=== PATIENT | male | born 1930 | race Caucasian/White ===

== ENCOUNTER 2016-06-26 07:28 | Day surgery (SDC) | payer MEDICARE, OTHER ==
--- NOTE | ~2016-06-26 | EGD ---
EGD REPORT [facility] [address] [place]. [address] NAME: COOPER HUBBARD : [birth year] [place] [facility] [place] [id number] AGE: 86 ADM/REG DATE : 06/26/16 MR#: [id number] REPORT SERV DATE: 06/26/16 DICTATED BY: CALI MARTINEZ DATE: 06/26/16 REPORT STATUS : Draft TRANSCRIBED BY: [facility] DATE: 06/26/16 Endoscopy Center Patient Name: Cooper Hubbard Date of : 1930 Attending MD: CALI MARTINEZ MD Procedure Date No Time: 06/26/2016 Procedure: Colonoscopy Indications: High risk colon cancer surveillance: Personal history of non-advanced adenoma, High risk colon cancer surveillance: Inflammatory bowel disease Referring MD: AMOR BURRELL Medicines: Propofol per Anesthesia Complications: No immediate complications. Procedure: Pre-Anesthesia Assessment: - ASA Grade Assessment: III - A patient with severe systemic disease. After I obtained informed consent, the scope was passed under direct vision. Throughout the procedure, the patient's blood pressure, pulse, and oxygen saturations were monitored continuously. The [id number] was introduced through the anus and advanced to the terminal ileum. The colonoscopy was performed without difficulty. The patient tolerated the procedure well. The quality of the bowel preparation was good. Findings: The perianal and digital rectal examinations were normal. The terminal ileum appeared normal. Biopsies were taken with a cold forceps for histology. to r/o microscopic ileitis The colon (entire examined portion) appeared normal. Biopsies were taken with a cold forceps from the right colon for evaluation of microscopic colitis. Biopsies were taken with a cold forceps from the left colon for evaluation of microscopic colitis. A benign-appearing, intrinsic moderate stenosis was found in the recto-sigmoid colon and was traversed after dilation. A TTS dilator was passed through the scope. Dilation with a 12-13.5-15 mm colonic balloon dilator was performed. A TTS dilator was passed through the scope. Dilation with a 15-16.5-18 mm colonic balloon dilator was performed. Biopsies were taken with a cold forceps for histology. Non-bleeding internal hemorrhoids were found during retroflexion and were mild, small and Grade I (internal hemorrhoids that do not prolapse). Impression: - The examined portion of the ileum was normal. Biopsied. - The entire examined colon is normal. Biopsied. 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 Dilated. EGD REPORT [address] [address] NAME: COOPER HUBBARD RIDGE : [birth year] [place]US : [place] [facility] [place] [id number] AGE: 86 ADM/REG DATE : 06/26/16 MR#: [id number] REPORT SERV DATE: 06/26/16 DICTATED BY: CALI MARTINEZ DATE: 06/26/16 REPORT STATUS : Draft TRANSCRIBED BY: [employer] DATE: 06/26/16 Biopsied. - Non-bleeding internal hemorrhoids. Recommendation: - Patient has a contact number available for emergencies. The signs and symptoms of potential delayed complications were discussed with the patient. Return to normal activities tomorrow. Written discharge instructions were provided to the patient. - Return to previous diet. - Continue present medications. - Await pathology results. - Repeat colonoscopy in 3 years for surveillance. - Return to my office as previously scheduled. - Discharge patient to home. Procedure Code(s): --- Professional --- 01058, Colonoscopy, flexible, proximal to splenic flexure; with dilation by balloon, 1 or more strictures 32254, Colonoscopy, flexible, proximal to splenic flexure; with biopsy, single or multiple Diagnosis Code(s): --- Professional --- K64.0, First degree hemorrhoids K56.69, Other intestinal obstruction Z86.010, Personal history of colonic polyps K52.9, Noninfective gastroenteritis and colitis, unspecified CPT copyright 2013 [employer]. All rights reserved. The codes documented in this report are preliminary and upon schedule maker review may be revised to meet current compliance requirements. Cali Martinez MD CALI MARTINEZ MD 06/26/2016 10:15 AM This report has been signed electronically. Number of Addenda: 0 Note Initiated On: 06/26/2016 9:06 AM Scope Withdrawal Time 0 hours 24 minutes 18 seconds [address] [place] [id number]
[~2016-06-26 07:28] MED LIST: AMARYL1 MG PO; AMLODIPINE; ASAB PO; ASACOL PO; COLCRYS0.6 MG PO; COR20 PO; COR40 PO; FISH-EPA1000 MG PO; GLUCOPHAGE1000 MG PO; GLUCOV5 PO; GLUCPH PO; HYTRIN10 MG PO; JANTOVEN1 MG PO; JANTOVEN4 MG PO; JANTOVEN5 MG PO; JANTOVEN6 MG PO; LOTREL1 CA1 PO; MICARDIS H80 MG/25 M PO; MICARDIS HCT PO; NEUR300 PO; NEUR600 PO; NIASPAN750 PO; NIFEDICAL XL60 MG PO; PRILO PO; SUPER B-C PO; VITAMIN B PO; Z300 PO; ZOCOR40 PO
[2016-06-26 07:52] LABS: INTERNATIONAL NORMAL RATI 1.3 UNITS (-); PROTIME (NOT ORD) 15.6 SEC (12.0-14.5)
[2016-09-07] MEDS ORDERED: GLUCPH PO (15:20)
[2016-09-07] MEDS ORDERED: GLUCOPHAGE1000 MG PO (15:21)
[2016-09-07] MEDS ORDERED: AMARYL1 MG PO (15:23)
[2016-09-07] MEDS ORDERED: AMARYL2 PO (15:23)
[2016-09-07] MEDS ORDERED: MICARDIS H80 MG/25 M PO (15:23)
[2016-09-07] MEDS ORDERED: JANTOVEN1 MG PO (15:24)
[2016-09-07] MEDS ORDERED: COR20 PO (15:24)
[2016-09-07] MEDS ORDERED: LOTREL1 CA2 PO (15:24)
[2016-09-07] MEDS ORDERED: Z300 PO (15:25)
[2016-09-07] MEDS ORDERED: NEUR600 PO (15:26)
[2016-09-07] MEDS ORDERED: FISH OIL300 MG PO (15:27)
[2016-09-07] MEDS ORDERED: HYTRIN10 MG PO (15:27)
[2016-09-07] MEDS ORDERED: NIACIN750 MG PO (15:27)
[2016-09-07] MEDS ORDERED: ZOCOR40 PO (15:27)
[2016-09-07] MEDS ORDERED: PRILOSEC OTC20 MG PO (15:28)
[2016-09-07] MEDS ORDERED: FERROUS SULF325 M1 PO (15:28)
[2016-09-07] MEDS ORDERED: SUPER B COMP PO (15:28)
== END 2016-06-26 23:59 | disposition home or self-care (01) ==
LOC: DMU 07:28
PROVIDERS: Anesthesiology; Internal Medicine Gastroenterology
PROC: 0DBG8ZX Excision of Left Large Intestine, Via Natural or Artificial Opening Endoscopic, Diagnostic (ICD-10-PCS; 2016-06-26)
PROC: 0DBF8ZX Excision of Right Large Intestine, Via Natural or Artificial Opening Endoscopic, Diagnostic (ICD-10-PCS; 2016-06-26)
PROC: 0D7N8ZZ Dilation of Sigmoid Colon, Via Natural or Artificial Opening Endoscopic (ICD-10-PCS; principal; 2016-06-26 08:30)
PROC: 0DBB8ZX Excision of Ileum, Via Natural or Artificial Opening Endoscopic, Diagnostic (ICD-10-PCS; 2016-06-26 08:30)
DX: K63.89 Other specified diseases of intestine (principal); K64.0 First degree hemorrhoids; K56.69 Other intestinal obstruction; K52.9 Noninfective gastroenteritis and colitis, unspecified; I25.10 Atherosclerotic heart disease of native coronary artery without angina pectoris; I48.91 Unspecified atrial fibrillation; I10 Essential (primary) hypertension; E78.5 Hyperlipidemia, unspecified; E11.9 Type 2 diabetes mellitus without complications; I73.9 Peripheral vascular disease, unspecified; L40.9 Psoriasis, unspecified; I71.4 Abdominal aortic aneurysm, without rupture; E78.00 Pure hypercholesterolemia, unspecified; M19.90 Unspecified osteoarthritis, unspecified site; Z86.010 Personal history of colon polyps; Z90.49 Acquired absence of other specified parts of digestive tract; Z90.89 Acquired absence of other organs; Z98.890 Other specified postprocedural states
CPT/HCPCS: 82962; 85610; 88305; C1725; C1726